=== PATIENT | female | born 1965 | race Hispanic/Latino ===

== ENCOUNTER 2016-08-02 16:05 | Emergency (ER) | payer OTHER ==
[~2016-08-02] VITALS: Ht 154.9 cm; Wt 85.3 kg
[~2016-08-02 16:05] MED LIST: ALBUTEROL2.5 MG/0.5 INH; ALBUTEROL2.5 MG/3 M INH; DOXEPIN HCL10 MG PO; ECOTRIN81 M1 PO; EDLUAR5 MG PO; PROAIR HFA8.5 GM INH; SAPHRIS2.5 MG PO; TRIHEXYPHEN2 MG/5 ML PO; TRIHEXYPHENIDYL5 M2 PO; XANAX2 M1 PO
--- NOTE | 2016-08-02 17:08 | ED GENERAL ADULT ---
History of Present Illness General Chief Complaint: General Adult Stated Complaint: RECTUM CA,PAIN,VOMITING Source: patient Exam Limitations: no limitations Vital Signs & Intake/Output Vital Signs & Intake/Output Vital Signs Date Time Temp Pulse Resp B/P B/P Pulse O2 O2 Flow FiO2 Mean Ox Delivery Rate 08/02 1823 97.0 94 18 137/88 97 Room Air Room Air 08/02 1615 96.6 102 16 140/96 95 Room Air Allergies Coded Allergies: No Known Allergies (05/10/15) Reconcile Medications Albuterol Sulfate (Proair Hfa) 8.5 GM HFA.AER.AD 2 PUFF INH PRN ASTHMA ( Reported) Doxepin HCl (Unknown Strength) CAPSULE (Unknown Dose) PO QPM NIGHTMARES ( Reported) Enoxaparin Sodium (Lovenox) (Unknown Strength) SYRINGE (Unknown Dose) SC BID BLOOD THINNER (Reported) Enoxaparin Sodium (Lovenox) 40 MG/0.4 ML SYRINGE 0.9 ML SC BID dvt Fenofibric Acid (Trilipix) 135 MG CAPSULE.DR 1 CAP PO DAILY CHOLESTEROL ( Reported) Fluticasone/Salmeterol (Advair 250-50 Diskus) 250 MCG-50 MCG/DOSE BLST.W.DEV 1 PUF INH BID ASTHMA (Reported) Lorazepam 0.5 MG TABLET 1 TAB PO DAILY ANXIETY (Reported) Oxycodone HCl/Acetaminophen (Percocet 10-325 MG Tablet) 10 MG-325 MG TABLET 1 TAB PO BID PAIN (Reported) Oxycodone HCl/Acetaminophen (Percocet 5-325 MG Tablet) 5 MG-325 MG TABLET 1 TAB PO TIDPC PRN pain Pantoprazole Sodium 40 MG TABLET.DR 1 TAB PO DAILY GI (Reported) Prazosin HCl 1 MG CAPSULE 1 CAP PO QPM NIGHTMARES (Reported) Pregabalin (Lyrica) 100 MG CAPSULE 1 CAP PO BID NERVE PAIN (Reported) Trihexyphenidyl HCl 2 MG TABLET 1 TAB PO DAILY MENTAL HEALTH (Reported) Valacyclovir HCl (Valacyclovir) 1,000 MG TABLET 1 TAB PO DAILY ANTIVIRAL ( Reported) Zolpidem Tartrate (Edluar) 5 MG TAB.SUBL 10 MG PO DAILY SLEEP (Reported) Triage Note: TRIAGE: C/O RECTAL PAIN, SECONDARY TO RECTAL CA. RAN OUT OF PERCOCETS. RAN OUT OF LOVENOX INJECTIONS TO ABDOMEN DUE TO HX OF BLOOD CLOTS. CALLED ONCOLOGIST DR JIMÉNEZ OUT OF [place] WHO INSTRUCTED PT TO COME TO ED FOR REFILLS. HAS RECTAL BLEEDING, CHRONIC DUE TO CA. ALSO REPORTS HAVING A QUARTER SIZED ABSCESS WITH SCHEDULED SURGERY ON AUGUST 13. ALSO REQUESTING AN LOCAL ANESTHETIC BUT DOES NOT REMEMBER NAME Triage Nurses Notes Reviewed? yes Onset: Abrupt Duration: day(s): (1), continues in ED, getting worse Timing: single episode today Severity: mild, moderate Severity Numbers: 7 No Modifying Factors: none LMP (ages 10-50): post menopausal : No Patient currently breastfeeds: No HPI: 51-year-old female with history of DVT and rectal cancer presents for refill of medication. She reports that she is scheduled to have a surgical procedure on the of this month for removal of a rectal mass. Her Coumadin was stopped and she was placed on Lovenox in preparation for the surgery. She is also been taking Percocets as needed for pain. Patient reports that she left her medications at daughter's house in [place] does not have a way to get to them. She reports that her last dose of Lovenox was yesterday. Patient reports pain in her rectal area that is worse with sitting or any type of movement. She has been taking Percocet with improvement of the pain but ran out yesterday. She reports she cannot get a hold of her doctor until Thursday because office is closed. She denies any fevers, abdominal pain, BRBPR, urinary symptoms, chest pain, shortness of breath or any other associated symptoms. (ADAIR MORALES PA-C) Past History Travel History Traveled to [place] past 21 day No Medical History Any Pertinent Medical History? see below for history Respiratory: asthma Psychiatric: anxiety, depression Blood Disorders: DVT Surgical History Surgical History: cholecystectomy Psychosocial History What is your primary language Stateless Tobacco Use: Refused to answer Family History Hx Contributory? Yes (ADAIR MORALES PA-C) Review of Systems Review of Systems Constitutional: Reports: no symptoms. EENTM: Reports: no symptoms. Respiratory: Reports: no symptoms. Cardiovascular: Reports: no symptoms. GI: Reports: see HPI (rectal pain), nausea. Genitourinary: Reports: no symptoms. Musculoskeletal: Reports: no symptoms. Skin: Reports: no symptoms. Neurological/Psychological: Reports: no symptoms. Hematologic/Endocrine: Reports: no symptoms. Immunologic/Allergic: Reports: no symptoms. All Other Systems: Reviewed and Negative (ANDREW MARTEL,ADAIR) Physical Exam Physical Exam General Appearance: well developed/nourished, no apparent distress, alert, awake , obese Comments: General: Hemodynamically stable. Afebrile. Well-developed well-nourished person in no acute distress. Head: Atraumatic, normocephalic Eyes: EOMI bilaterally, PERRLA, conjunctiva are not injected, no discharge, no nystagmus, fundus grossly normal bilaterally Nose: Atraumatic, no rhinorrhea, mucosa is not erythematous, no epistaxis. Sinuses are non-tender Ears: TM pearly morales color bilaterally, external canal is clear, no discharge, hearing is normal Mouth: Appropriate dentition, no gingival bleeding, moist mucus membranes, no oral lesions, tonsils not erythematous or enlarged and free of exudate. Uvula rises midline. Neck: Supple, full active ROM, no lymphadenopathy, no midline tenderness to palpation, no thyromegaly, no tracheal deviation. Back: Non-tender, full active ROM, no scoliosis, no CVA tenderness Cardiovascular: regular rate and rhythm, no murmurs, rubs, or gallops. No JVD Respiratory: Chest is nontender. Regular respiratory rate and effort. No accessory muscle use. Lungs clear to auscultation bilaterally. Abdomen: Soft, non-tender, non-distended, no organomegaly. No rebound tenderness or guarding. Normoactive bowel sounds. Extremities: No edema. No gross deformities. No joint swelling. No calf swelling or tenderness. Full active and passive ROM. Strength 5/5 in upper and lower extremities. Peripheral pulses 2+ bilaterally, Patellar DTR 2+ Neuro: No confusion. Motor and sensory function is intact. Appropriate gait. Cerebellar function intact. Skin: Warm and dry. Appropriate turgor. No lesions or bruising. No appreciable rash on exposed skin. Core Measures ACS in differential dx? No CVA/TIA Diagnosis: No Severe Sepsis Present: No Septic Shock Present: No (ADAIR MORALES PA-C) Progress Differential Diagnoses I considered the following diagnoses in my evaluation of the patient: Rectal cancer, hemorrhoids, colon cancer, upper GI bleed, lower GI bleed, viral gastroenteritis, rectal abscess, perirectal abscess Plan of Care: Patient is here for medication refill for Lovenox and Percocet. She is nontoxic appearing. Her pain is similar to what she's been having for months associated with rectal cancer. sHe is followed by colorectal surgery out of [facility] in [place] surgery scheduled for the of this month. Called [facility] and confirmed that patient has an appointment for the . Also called [facility] pharmacy in [place] and confirm the dosing of Lovenox. Patient be given a refill of Lovenox 0.9mg subcutaneously twice a day. She will also be given Percocet to use for pain. Advised patient to call her colorectal surgeon on Thursday and follow-up as scheduled. Patient is nontoxic appearing at Discharge. She agrees the plan. Initial ED EKG: none (ANDREW MARTEL,ADAIR) Departure Departure Disposition: HOME OR SELF CARE Condition: Stable Clinical Impression Primary Impression: Rectal pain, chronic Referrals: UNKNOWN (PCP/Family) Additional Instructions: Continue to use Lovenox as directed. Percocet as needed for pain. Make a follow-up appt with your colorectal surgeon this week. Return to the emergency department for any concerns. Please go over all results of today's visit with your primary care doctor. Contact your primary care doctor to let them know you were here in the emergency room. There may be nonspecific findings which may not be related to your visit today here in the emergency room but may require further evaluation and chronic monitoring by your primary care doctor. If you had a laceration today the chance of foreign body always remains. You should follow-up with your primary care doctor for recheck in 3-5 days for a wound check. If you had an x-ray done there is a chance that a fracture could have been missed on initial read and you should follow-up with your primary care doctor for repeat x-rays if symptoms persist. If your blood pressure was elevated here in the emergency room please have rechecked by her primary care doctor within the next 48 hours by your primary care doctor. If you were prescribed a narcotic here in the emergency room or any type of controlled substances you're not allowed to drive while taking this medication or operate any type of heavy machinery. Narcotics can make you feel lightheaded dizziness nausea and can cause constipation. You may need to header setup operator a stool softener. Thank you for choosing [facility] emergency room. Please return to the emergency room immediately if you have any other concerns worsening of symptoms. Departure Forms: Customer Survey General Discharge Information Prescriptions: Current Visit Scripts Enoxaparin Sodium (Lovenox) 0.9 ML SC BID #10 SYR Oxycodone HCl/Acetaminophen (Percocet 5-325 MG Tablet) 1 TAB PO TIDPC PRN pain #5 TAB (ADAIR MORALES PA-C) PA/RESEARCH STAFF MEMBER Co-Sign Statement Statement: ED Attending supervision documentation- [] I saw and evaluated the patient. I have also reviewed all the pertinent lab results and diagnostic results. I agree with the findings and the plan of care as documented in the PA's/RESEARCH STAFF MEMBER's documentation. [X] I have reviewed the ED Record and agree with the PA's/RESEARCH STAFF MEMBER's documentation. [] Additions or exceptions (if any) to the PAs/RESEARCH STAFF MEMBER's note and plan are summarized below: [] (JEREL MAZARIEGOS,ROB) Critical Care Note Critical Care Note Critical Care Time: non-applicable (ADAIR MORALES PA-C)
[2016-08-02] MEDS ORDERED: LOVENOX40 MG/0.1 SC ×2 (17:11→18:17)
[2016-08-02] MEDS ORDERED: TRIHEXYPHENIDYL2 M2 PO (17:12)
[2016-08-02] MEDS ORDERED: LORAZEPAM0.5 M1 PO (17:12)
[2016-08-02] MEDS ORDERED: LYRICA100 M1 PO (17:13)
[2016-08-02] MEDS ORDERED: ADVAIR 250-501 EACH INH (17:15)
[2016-08-02] MEDS ORDERED: TRILIPIX135 M1 PO (17:15)
[2016-08-02] MEDS ORDERED: PANTOPRAZOLE SO40 M1 PO (17:15)
[2016-08-02] MEDS ORDERED: PRAZOSIN HCL1 M1 PO (17:15)
[2016-08-02] MEDS ORDERED: VALACYCLOVIR1000 MG PO (17:16)
[2016-08-02] MEDS ORDERED: PERCOCET 10-321 EACH PO (17:17)
[2016-08-02] MEDS ORDERED: PERCOCET 5-3251 EACH PO (18:17)
[2016-08-02 18:23] VITALS: BP 137/88
== END 2016-08-02 18:23 ==
LOC: ERH 16:05
DX: K62.89 Other specified diseases of anus and rectum (principal)
CPT/HCPCS: 99281

== ENCOUNTER 2017-10-13 13:41 | Emergency (ER) | payer OTHER ==
[~2017-10-13] VITALS: Ht 154.9 cm; Wt 93.4 kg
[~2017-10-13 13:41] MED LIST changes: +ADVAIR 250-501 EACH INH; +LORAZEPAM0.5 M1 PO; +LOVENOX40 MG/0.1 SC; +LYRICA100 M1 PO; +PANTOPRAZOLE SO40 M1 PO; +PERCOCET 10-321 EACH PO; +PERCOCET 5-3251 EACH PO; +PRAZOSIN HCL1 M1 PO; +TRIHEXYPHENIDYL2 M2 PO; +TRILIPIX135 M1 PO; +VALACYCLOVIR1000 MG PO
[2017-10-13 14:41] LABS: ABSOLUTE BASOPHIL COUNT 0 /CUMM (0.0-0.2); ABSOLUTE EOSINOPHIL COUNT 0.1 /CUMM (0.0-0.7); ABSOLUTE GRANULOCYTE CT 4.3 /CUMM (1.4-6.5); ABSOLUTE LYMPH COUNT 1.9 /CUMM (1.2-3.4); ABSOLUTE MONOCYTE COUNT 0.3 /CUMM (0.10-0.60); BASOPHIL % 0.5 % (0.0-2.0); EOSINOPHIL % 1.5 % (0-5); GRANULOCYTE % 64.8 % (42.2-75.2); HEMATOCRIT 39.5 % (37-47); MEAN CORPUSCULAR HGB 31.7 PG (27.0-31.0); MEAN CORPUSCULAR HGB CONC 35.3 G/DL (33.0-37.0); MEAN CORPUSCULAR VOLUME 89.8 FL (81.0-99.0); PLATELET COUNT 194 /CUMM (130-400); RBC DISTRIBUTION WIDTH 13.7 % (11.5-14.5); RED BLOOD CELL CT 4.39 /CUMM (4.20-5.40); WHITE BLOOD CELL COUNT 6.6 /CUMM (4.8-10.8)
[2017-10-13 14:49] LABS: PTT 34 SEC (25-37)
[2017-10-13 16:45] LABS: PT 15.5 SEC (9.4-12.5)
--- NOTE | 2017-10-13 17:11 | ED GENERAL ADULT ---
History of Present Illness General Chief Complaint: General Adult Stated Complaint: PER PT "RECTAL BLEED THAT SEEMS CLOT-LIKE" Source: patient Exam Limitations: no limitations Vital Signs & Intake/Output Vital Signs & Intake/Output Vital Signs Date Time Temp Pulse Resp B/P B/P Pulse O2 O2 Flow FiO2 Mean Ox Delivery Rate 10/13 1715 97.7 68 15 110/70 97 Room Air Room Air 10/13 1711 Room Air Room Air 10/13 1634 98.8 68 18 109/65 99 ED Intake and Output 10/14 0000 10/13 1200 Intake Total 1000 Output Total Balance 1000 Intake, IV 1000 Intake, Oral 0 Patient 206 lb Weight Weight Reported by Patient Measurement Method Allergies Coded Allergies: No Known Allergies (05/10/15) Reconcile Medications Albuterol Sulfate (Proair Hfa) 8.5 GM HFA.AER.AD 2 PUFF INH PRN ASTHMA ( Reported) Doxepin HCl (Unknown Strength) CAPSULE (Unknown Dose) PO QPM NIGHTMARES ( Reported) Enoxaparin Sodium (Lovenox) (Unknown Strength) SYRINGE (Unknown Dose) SC BID BLOOD THINNER (Reported) Enoxaparin Sodium (Lovenox) 40 MG/0.4 ML SYRINGE 0.9 ML SC BID dvt Fenofibric Acid (Trilipix) 135 MG CAPSULE.DR 1 CAP PO DAILY CHOLESTEROL ( Reported) Fluticasone/Salmeterol (Advair 250-50 Diskus) 250 MCG-50 MCG/DOSE BLST.W.DEV 1 PUF INH BID ASTHMA (Reported) Lidocaine (Anecream5) 5 % CREAM..G. 1 COSMO TOP BID PRN pain Lorazepam 0.5 MG TABLET 1 TAB PO DAILY ANXIETY (Reported) Oxycodone HCl/Acetaminophen (Percocet 10-325 MG Tablet) 10 MG-325 MG TABLET 1 TAB PO BID PAIN (Reported) Oxycodone HCl/Acetaminophen (Percocet 5-325 MG Tablet) 5 MG-325 MG TABLET 1 TAB PO TIDPC PRN pain Pantoprazole Sodium 40 MG TABLET.DR 1 TAB PO DAILY GI (Reported) Prazosin HCl 1 MG CAPSULE 1 CAP PO QPM NIGHTMARES (Reported) Pregabalin (Lyrica) 100 MG CAPSULE 1 CAP PO BID NERVE PAIN (Reported) Trihexyphenidyl HCl 2 MG TABLET 1 TAB PO DAILY MENTAL HEALTH (Reported) Valacyclovir HCl (Valacyclovir) 1,000 MG TABLET 1 TAB PO DAILY ANTIVIRAL ( Reported) Warfarin Sodium (Coumadin) 5 MG TABLET 1 TAB PO DAILY DVT Zolpidem Tartrate (Edluar) 5 MG TAB.SUBL 10 MG PO DAILY SLEEP (Reported) Triage Note: 52 Y/O FEMALE C/O RECTAL PAIN SINCE 08/18/16 WHEN PT HAD SURGERY FOR "STAGE 3 RECTAL CANCER". PT STATES OPERATION WAS DONE IN [facility]; PT HAS SINCE MOVED TO [place] AND HAS NOT HAD FOLLOW UP. PT REPORTS RECTAL PAIN SINCE OPERATION; ALSO C/O NAUSEA, "NOT EATING WELL", AND INTERMITTENT "HOT AND COLD" FEELING. DENIES ABDOMINAL PAIN. DENIES URINARY SYMPTOMS. PT WAS TAKING PERCOCET WITH GOOD RELIEF BUT HAS NOT HAD ANY RECENTLY. STATES STOOL IS "HARD AND SOFT", NOTICED BLOOD WITH STOOL TODAY. Triage Nurses Notes Reviewed? yes Onset: Gradual Duration: week(s): Timing: constant HPI: 52-year-old female with a history of stage III rectal cancer (status post resection 2 months ago), DVT (on Coumadin), anxiety, depression, asthma presenting with persistent postop rectal pain since the resection. States that her operation was performed in [place], she recently relocated to the area and has not yet arranged a colorectal surgeon. She states that since her surgery she has been having 3-4 episodes of diarrhea per day with bright red blood, occasionally there are small clots in the diarrhea. Patient states that she has had generalized malaise, nausea, decreased p.o. intake, weakness, and generalized abdominal pain since the surgery as well. Denies fevers, chest pain , shortness of breath, vomiting, lightheadedness, dizziness, urinary symptoms. (Deanna Menendez) Past History Travel History Traveled to [place] past 21 day No Medical History Any Pertinent Medical History? see below for history Neurological: NONE EENT: NONE Cardiovascular: NONE Respiratory: asthma Gastrointestinal: NONE Hepatic: NONE Renal: NONE Musculoskeletal: NONE Psychiatric: anxiety, depression Endocrine: NONE Blood Disorders: DVT Cancer(s): RECTAL CA Surgical History Surgical History: cholecystectomy Psychosocial History What is your primary language Georgian Tobacco Use: Never used Family History Hx Contributory? No (Deanna Menendez) Review of Systems Review of Systems Constitutional: Reports: see HPI. EENTM: Reports: no symptoms. Respiratory: Reports: no symptoms. Cardiovascular: Reports: no symptoms. GI: Reports: see HPI. Genitourinary: Reports: no symptoms. Musculoskeletal: Reports: no symptoms. Skin: Reports: no symptoms. Neurological/Psychological: Reports: no symptoms. Hematologic/Endocrine: Reports: no symptoms. Immunologic/Allergic: Reports: no symptoms. All Other Systems: Reviewed and Negative (Deanna Menendez) Physical Exam Physical Exam General Appearance: well developed/nourished, no apparent distress, alert, awake , comfortable Comments: Gen.: Well-nourished, well-developed, no acute distress. Head: Normocephalic, atraumatic. Eyes: Normal inspection bilaterally Ears: Normal inspection bilaterally Nose: Normal inspection Neck: Normal inspection Lungs: clear to auscultation bilaterally, normnal breath sounds Heart: regular rate and rhythm Abdomen: soft, normal bowel sounds, nondistended, diffuse tenderness to palpation that does not localize, no rebound or guarding Rectal: Resection sites visualized with formation of scar tissue, no visible external bleeding, on digital rectal exam there was brown guaiac negative stool Extremities: Normal inspection Neurologic: alert and oriented x3, steady gait Skin: warm and dry Psychiatric: Normal mood and affect, no apparent delusions or hallucinations, behavior appropriate Core Measures ACS in differential dx? No CVA/TIA Diagnosis: No Sepsis Present: No Sepsis Focused Exam Completed? No (Deanna Menendez) Progress Differential Diagnoses I considered the following diagnoses in my evaluation of the patient: [Postop pain versus GI bleed versus dehydration versus metabolic derangement] Plan of Care: Orders Procedure Date/time Status Add-on Test (ER Only) 10/13 1624 Active URINALYSIS 10/13 1624 Complete Add-on Test (ER Only) 10/13 1607 Active EKG 10/13 1607 Active TROPONIN LEVEL 10/13 1430 Complete PROTHROMBIN TIME 10/13 1430 Complete LIPASE 10/13 1430 Complete Laboratory Tests 10/13/17 1755: Urine Color YEL, Urine Clarity CLEAR, Urine pH 6.0, Ur Specific [place] 1.010, Urine Protein NEG, Urine Ketones NEG, Urine Nitrite NEG, Urine Bilirubin NEG, Urine Urobilinogen 0.2, Ur Leukocyte Esterase NEG, Ur Microscopic EXAM NOT REQUIRED, Urine Hemoglobin NEG, Urine Glucose NEG CT abdomen pelvis 1. No evidence of bowel obstruction or perforation. 2. Status post cholecystectomy with mild proximal common bile duct distention and smooth tapering to normal caliber in the pancreatic head. No intrahepatic ductal dilatation. No focal collection in the gallbladder fossa. 3. Left parapelvic renal cyst, slightly larger compared to 05/10/2015. 4. Small fat-containing umbilical hernia. Labs show subtherapeutic INR of 1.42. Otherwise labs are unremarkable. Patient is extremely well-appearing with normal vital signs. She is actively ambulating around the room and requesting to be discharged. She is requesting refills on her Coumadin as she has not established a primary care provider in the area. Also requesting topical lidocaine jelly for her rectal pain. She was given follow-up with colorectal surgery for further evaluation. Counseled on strict return precautions. Initial ED EKG: normal sinus rhythm, no ST T wave changes (Deanna Menendez) Departure Departure Disposition: HOME OR SELF CARE Condition: Stable Clinical Impression Primary Impression: Abdominal pain Secondary Impressions: Bloody stools Referrals: Henry MAZARIEGOS,Josue Moreno MD,Pauline Patient Has No Primary Care Dr (PCP/Family) Additional Instructions: Continue taking your Coumadin as prescribed. Use lidocaine jelly as needed for pain. Follow-up with a primary care provider to establish care and for further evaluation. Follow-up with for further evaluation of your colorectal cancer. Return to the emergency department for any new or worsening symptoms. Departure Forms: Customer Survey General Discharge Information Prescriptions: Current Visit Scripts Warfarin Sodium (Coumadin) 1 TAB PO DAILY #30 TAB Lidocaine (Anecream5) 1 COSMO TOP BID PRN pain #1 TUBE (Deanna Menendez) PA/ATHLETIC TEAM PHYSICIAN Co-Sign Statement Statement: ED Attending supervision documentation- [] I saw and evaluated the patient. I have also reviewed all the pertinent lab results and diagnostic results. I agree with the findings and the plan of care as documented in the PA's/ATHLETIC TEAM PHYSICIAN's documentation. [x] I have reviewed the ED Record and agree with the PA's/ATHLETIC TEAM PHYSICIAN's documentation. [] Additions or exceptions (if any) to the PAs/ATHLETIC TEAM PHYSICIAN's note and plan are summarized below: [] (Stephan Mccauley DO) Critical Care Note Critical Care Note Critical Care Time: non-applicable (Deanna Menendez)
[2017-10-13 17:15] VITALS: BP 110/70
--- NOTE | 2017-10-13 18:35 | CT SCAN REPORT ---
EXAMINATION: CT ABDOMEN AND PELVIS WITH CONTRAST CLINICAL INFORMATION: Diffuse abdominal pain, worse in epigastrium. Presumptive diagnosis of perforated viscus. COMPARISON: CT scan of the abdomen and pelvis dated 05/10/2015. TECHNIQUE: Multidetector CT volumetric acquisition of the abdomen and pelvis was performed after the administration of 95 mL of intravenous Optiray 320. The data set was reformatted in the sagittal and coronal planes and reviewed on an independent workstation. DLP: 426.15 mGy-cm. FINDINGS: LOWER CHEST: Mild atelectatic changes as seen in the lung bases bilaterally. LIVER, GALLBLADDER, BILIARY TREE: Liver normal size and diffusely lower in attenuation compared to the spleen, consistent with hepatic steatosis, similar to the previous exam. No focal cystic or solid mass or intrahepatic ductal dilatation. Proximal common bile duct measures 0.8 cm in maximal diameter and tapers smoothly to 0.4 cm in the pancreatic head. Hepatic and portal veins patent. The patient is status post cholecystectomy. No focal fluid collection seen in the gallbladder fossa. PANCREAS: Normal. No ductal dilatation, mass, or surrounding stranding. SPLEEN: Normal size and appearance. Splenic vein patent. ADRENAL GLANDS AND KIDNEYS: Adrenal glands normal. Kidneys bilaterally symmetric in size and function. There is a 1.6 cm diameter parapelvic mid left renal cyst, slightly larger compared to 1.1 cm previously. No suspicious focal renal mass, hydronephrosis, nephrolithiasis or perinephric stranding. URETERS AND BLADDER: Ureters decompressed and within normal limits. Bladder partially distended and within normal limits. PELVIC ORGANS: Unremarkable. GASTROINTESTINAL TRACT: The stomach is partially distended and appears unremarkable. No perigastric stranding or edema is seen. Duodenal C-sweep is unremarkable. No free air is seen. Small and large bowel loops decompressed. Appendix not discretely visualized but no focal inflammatory process is seen in the right lower quadrant. ABDOMINAL WALL: There is a small fat-containing umbilical hernia. LYMPHOVASCULAR STRUCTURES: Abdominal aorta normal in caliber. No periaortic collections. No abdominal or pelvic adenopathy or free fluid collection. BONES: Unremarkable. IMPRESSION: 1. No evidence of bowel obstruction or perforation. 2. Status post cholecystectomy with mild proximal common bile duct distention and smooth tapering to normal caliber in the pancreatic head. No intrahepatic ductal dilatation. No focal collection in the gallbladder fossa. 3. Left parapelvic renal cyst, slightly larger compared to 05/10/2015. 4. Small fat-containing umbilical hernia.
[2017-10-13] MEDS ORDERED: COUMADIN5 M2 PO (18:50)
[2017-10-13] MEDS ORDERED: ANECREAM515 GM TOP (18:50)
== END 2017-10-13 18:55 ==
LOC: ERH 13:41
PROVIDERS: Physician Assistant Medical
DX: R10.9 Unspecified abdominal pain (principal); K92.1 Melena; G89.18 Other acute postprocedural pain; K62.89 Other specified diseases of anus and rectum; J45.909 Unspecified asthma, uncomplicated; Z79.01 Long term (current) use of anticoagulants
CPT/HCPCS: 74177; 81003; 93005; 93010; 96374; 96375; J0131; J2405